=== PATIENT | female | born 1955 | race Caucasian/White ===

== ENCOUNTER → 2017-11-05 | Outpatient (CLI) | payer BC ==
[~2017-11-05] VITALS: Ht 162.6 cm; Wt 139.5 kg
[~2017-11-05] MED LIST: ALEVE220 M2 PO; DIOVAN HCT 31 TABLE1 PO; OXYCONTIN20 MG PO; POTASSIUM CHLO10 ME3 PO; SIMVASTATIN20 MG PO; ULTRAM50 MG PO; VICTOZA0.6 MG/0.1 SC
[2017-11-05 13:17] LABS: POINT-OF-CARE METER ID UU14107333
== END | disposition home or self-care (01) ==
LOC: AMB 12:30
PROVIDERS: Internal Medicine Gastroenterology
DX: Z12.11 Encounter for screening for malignant neoplasm of colon (principal); D12.3 Benign neoplasm of transverse colon; D12.4 Benign neoplasm of descending colon; K63.5 Polyp of colon; K57.30 Diverticulosis of large intestine without perforation or abscess without bleeding; K64.8 Other hemorrhoids; E66.9 Obesity, unspecified; Z68.43 Body mass index [BMI] 50.0-59.9, adult; M19.90 Unspecified osteoarthritis, unspecified site; Z79.891 Long term (current) use of opiate analgesic; I10 Essential (primary) hypertension; E78.5 Hyperlipidemia, unspecified
CPT/HCPCS: 82948; 88305; 93005; J3010

== ENCOUNTER 2018-02-12 20:47 | Inpatient (IN) | payer BC ==
[~2018-02-12] VITALS: Ht 162.6 cm; Wt 141.0 kg
[~2018-02-12 20:47] MED LIST changes: +ASPERCREME 1035.4 GM TP; -DIOVAN HCT 31 TABLE1 PO; +DIOVAN320 MG PO; +FLINTSTONES1 EACH PO
[2018-02-13 05:55] VITALS: BP 136/63
[2018-02-13 15:02] VITALS: BP 168/78
[2018-02-13 17:54] VITALS: BP 162/72
[2018-02-13 18:06] VITALS: BP 152/76
[2018-02-13 19:45] VITALS: BP 160/77
[2018-02-13 23:42] VITALS: BP 152/66
[2018-02-14 07:06] LABS: HEMATOCRIT 41.7 % (36.0-46.0); HEMOGLOBIN 13.5 G/DL (11.9-15.5); MCH 29.2 PG (29.0-34.0); MCHC 32.4 G/DL (30.0-36.0); MCV 90.1 FL (83-99); PLATELET COUNT 219 K/uL (156-360); RBC DIS.WIDTH-CV 13.7 % (11.8-14.6); RBC DIS.WIDTH-SD 44.8 % (39-53); RED BLOOD COUNT 4.63 M/uL (3.80-5.20); WHITE BLOOD COUNT 9.7 K/uL (4.1-10.2)
[2018-02-14 07:30] LABS: CHLORIDE 103 MEQ/L (99-109); CREATININE 0.7 MG/DL (0.6-1.3); GFR ESTIMATE (CALCULATED) > 59 mL/min/; GLUCOSE 135 mg/dL (70-99); MAGNESIUM 1.9 mg/dl (1.3-2.7); POTASSIUM 4.2 MEQ/L (3.7-5.4); SODIUM 140 MEQ/L (136-147); UREA NITROGEN (BUN) 9 mg/dL (9-23)
== END 2018-02-14 10:05 | disposition home or self-care (01) | DRG 621 ==
LOC: ENRESERV 20:47 → 2SOUTH 02-13 05:09 → ENRESERV 02-13 14:00 → 2SOUTH 02-13 14:44 → 2EAST 02-13 14:56
PROVIDERS: Surgery
PROC: 0DB64Z3 Excision of Stomach, Percutaneous Endoscopic Approach, Vertical (ICD-10-PCS; principal; 2018-02-13)
DX: E66.01 Morbid (severe) obesity due to excess calories (principal); Z68.43 Body mass index [BMI] 50.0-59.9, adult; E11.9 Type 2 diabetes mellitus without complications; I10 Essential (primary) hypertension; E07.9 Disorder of thyroid, unspecified; G89.29 Other chronic pain
CPT/HCPCS: 80048; 82948; 83735; 84100; 85027; 94799; C9113; J0131; J0330; J0690; J1100; J1170; J1644; J1650; J2250; J2405; J2710; J2765; J3480; J7120; S0020